=== PATIENT | male | born 1965 | race Caucasian/White ===

== ENCOUNTER → 2023-06-04 11:09 | Outpatient (REF) | payer BC, SELFPAY | LOC: RCS 11:09 | PROVIDERS: ATTENDING PHYSICIAN Thoracic Surgery (Cardiothoracic Vascular Surgery); FAMILY PHYSICIAN Hospitalist | DX: I25.10 Atherosclerotic heart disease of native coronary artery without angina pectoris (principal); I34.0 Nonrheumatic mitral (valve) insufficiency; I50.21 Acute systolic (congestive) heart failure; I36.1 Nonrheumatic tricuspid (valve) insufficiency | CPT/HCPCS: 93308; 93321; 93325 ==

== ENCOUNTER 2023-06-23 05:19 | Inpatient (IN) | payer BC, SELFPAY ==
[2023-06-17 08:27] VITALS: BMI 24.0
[2023-06-17 09:17] LABS: % Basophils 0.8 % (0-2); % Eosinophils 1.7 % (0-6); % Lymphocytes 22.1 % (20.5-51.1); % Monocytes 5.2 % (1.7-9.3); % Neutrophils 68.2 % (42.2-75.2); Absolute Basophils 0.1 10^3/uL (0-0.2); Absolute Eosinophils 0.2 10^3/uL (0-0.7); Absolute Immature Granulocytes 0.2 10^3/uL (0-0.05); Absolute Lymphocytes 1.9 10^3/uL (1.2-3.4); Absolute Monocytes 0.5 10^3/uL (0.1-0.6); Absolute Neutrophils 5.9 10^3/uL (1.4-6.5); Hematocrit 42.5 % (39.0-52.0); Hemoglobin 14.4 g/dL (13.0-18.0); Mean Corp Hgb Conc. 33.9 g/dL (33.0-37.0); Mean Corpuscular Hgb 30.6 pg (27.0-31.0); Mean Corpuscular Volume 90.2 fL (80.0-94.0); Mean Platelet Volume 9.1 fL (7.4-10.4); Nucleated Red Blood Cells % 0 % (-); Platelet Count 287 10^3/uL (130-400); Red Blood Cell Count 4.71 10^6/uL (4.70-6.10); White Blood Cell Count 8.6 10^3/uL (4.8-10.8)
[2023-06-17 09:21] LABS: INR 0.98; PT 12.9 Sec (11.4-14.6)
[2023-06-17 09:22] LABS: APTT 33.2 Sec (23.4-35.0)
[2023-06-17 09:36] LABS: Urine Albumin Negative (Neg - Trace); Urine Bilirubin Negative (Negative); Urine Character Clear (Clear); Urine Color Yellow; Urine Glucose 3+ (Negative); Urine Ketone Negative (Negative); Urine Leukocyte Negative (Negative); Urine Nitrite Negative (Negative); Urine Occult Blood Negative (Negative); Urine Specific Gravity 1.015 (<1.030); Urine Urobilinogen Negative (Neg - 1+)
[2023-06-17 09:49] LABS: Glycohemoglobin (HgbA1c) 5.7 % (4.0-5.6)
[2023-06-17 09:59] LABS: ALT (SGPT) 44 U/L (0-50); AST (SGOT) 39 U/L (17-59); Albumin 4.4 g/dl (3.5-5.0); Alkaline Phosphatase 109 U/L (38-126); Blood Urea Nitrogen 16 mg/dl (9-20); Calcium 9.5 mg/dl (8.4-10.2); Carbon Dioxide 24 mmol/L (22-30); Chloride 102 mmol/L (98-107); Estimated Creatinine Clearance 75 ml/min; Glucose 91 mg/dl (70-99); Potassium 4.4 mmol/L (3.5-5.1); Sodium 137 mmol/L (135-145); Total Bilirubin 0.7 mg/dl (0.2-1.3); Total Protein 7.9 g/dl (6.3-8.2); eGFR > 60.00
--- NOTE | 2023-06-17 10:58 | CM ---
Met with Mr. [place] and is sister in [place]. He states prior to admission he resides with his two sisters in a three story home with two steps to enter. He states he has two steps to enter to the home. He states he has a powder room on the first
floor. He states he has to go up a full flight of steps to get to bedroom/full bathroom. He states prior to admission he was independent with ambulation and adls. He states he does not have any DME in the home. He states he has a prescription plan
and uses [facility]. His sisters will be home to check on him if needed. They do work outside the home. The discharge plan is to return home with his two sisters and a home visit by the Cardiothoracic Transitional Care Nurse or [facility] when
medically stable.
We reviewed pre-op and post-op routines. We reviewed the shower instructions. He has the soap, written instructions and the Cardiothoracic Surgery Educational Booklet. We also reviewed restrictions including Sternal precautions and driving
restrictions. We discussed a home visit by the Cardiothoracic Transitional Care Nurse if in their catchment area or [facility] if needed. He is agreeable to a home visit. The plan is for CABG on Friday, June 23, 2023.
[2023-06-23] VITALS (16 sets, daily range): BP systolic 88–130; BP diastolic 59–94; BMI 22.9
--- NOTE | 2023-06-23 05:30 | PTCARENOTE ---
pt admitted into CVICU room 2262. pt clipped and prepped for CVOR. ABO drawn. pt confirmed 2 showers at home. pre-op education provided. pre-op meds administered. all questions answered. airport operations supervisor to OR
[2023-06-23] MEDS: MAGNESIUM OXIDE 500 MG PO (05:39)
[2023-06-23] MEDS: PROTONIX 40 MG PO (05:39)
[2023-06-23] MEDS: LOPRESSOR 25 MG PO (05:39)
[2023-06-23] MEDS: BACTROBAN 2% OINTMENT 1 APPLIC NASAL ×2 (05:39→19:59)
--- NOTE | 2023-06-23 06:14 | W.CVOR.SURPR ---
CVOR Surgeon Immed Pre Op
-
I have examined this patient prior to performance of the scheduled procedure.
The patient's condition is unchanged from the time of the dictated/written History and
Physical and the patient is able to undergo the scheduled procedure.
High risk CABG +/- Multi valve intervention +/- 5.5 impella support
[2023-06-23 07:32] LABS: ACT+ - POC 109 Seconds (82-134)
[2023-06-23 07:36] LABS: B.E. - POC -4.5 mmol/L; Glucose - POC 97 mg/dl (65-99); HCO3 - POC 20 mmol/L (21-29); Hematocrit - POC 40 % PCV (42-52); Hemodilution- POC No; Hemoglobin Calculated - POC 13.7; Ionized Calcium - POC 1.25 mmol/L (1.12-1.27); O2 Saturation %Calculated-POC 99.8 5 (92-96); PCO2 - POC 37 mmHg (35-45); PO2 - POC 245 mmHg (80-100); Potassium - POC 4.2 mmol/L (3.6-5.0); Sodium - POC 142 mmol/L (135-145); pH - POC 7.36 (7.35-7.45)
[2023-06-23 07:42] LABS: Urine Albumin Trace (Neg - Trace); Urine Bilirubin Negative (Negative); Urine Character Clear (Clear); Urine Color Yellow; Urine Glucose 2+ (Negative); Urine Ketone Negative (Negative); Urine Leukocyte Negative (Negative); Urine Nitrite Negative (Negative); Urine Occult Blood Negative (Negative); Urine Urobilinogen Negative (Neg - 1+)
--- NOTE | 2023-06-23 08:17 | CM ---
Reviewed chart. Mr. Davalos is in the operating room today. Prior to admission he resides with his two sisters in a three story home with two steps to enter. He has a powder room on the first floor. He has to go up a full flight of steps to get to
bedroom/full bathroom. Prior to admission he was independent with ambulation and adls. He does not have any DME in the home. He has a prescription plan and uses [facility]. His sisters will be available to check on him at home. They do work
outside the home. Medical work-up in progress. The discharge plan is to return home with his two sisters and a home visit by the Cardiothoracic Transitional Care Nurse verses [facility] when medically stable.
[2023-06-23 09:04] LABS: ACT+ - POC 552 Seconds (82-134)
[2023-06-23 09:27] LABS: B.E. - POC -2.3 mmol/L; Glucose - POC 120 mg/dl (65-99); HCO3 - POC 24 mmol/L (21-29); Hematocrit - POC 31 % PCV (42-52); Hemodilution- POC Yes; Hemoglobin Calculated - POC 10.7; Ionized Calcium - POC 1.11 mmol/L (1.12-1.27); O2 Saturation %Calculated-POC 99.7 5 (92-96); PCO2 - POC 46 mmHg (35-45); PO2 - POC 221 mmHg (80-100); Potassium - POC 4.7 mmol/L (3.6-5.0); Sodium - POC 138 mmol/L (135-145); pH - POC 7.32 (7.35-7.45)
[2023-06-23 09:30] LABS: ACT+ - POC 476 Seconds (82-134)
[2023-06-23 10:04] LABS: B.E. - POC -0.9 mmol/L; Glucose - POC 171 mg/dl (65-99); HCO3 - POC 25 mmol/L (21-29); Hematocrit - POC 38 % PCV (42-52); Hemodilution- POC Yes; Hemoglobin Calculated - POC 12.8; Ionized Calcium - POC 1.09 mmol/L (1.12-1.27); O2 Saturation %Calculated-POC 99.2 5 (92-96); PCO2 - POC 43 mmHg (35-45); PO2 - POC 145 mmHg (80-100); Potassium - POC 5.1 mmol/L (3.6-5.0); Sodium - POC 140 mmol/L (135-145); pH - POC 7.37 (7.35-7.45)
[2023-06-23 10:06] LABS: ACT+ - POC 443 Seconds (82-134)
[2023-06-23 10:53] LABS: ACT+ - POC 107 Seconds (82-134)
[2023-06-23 10:56] LABS: B.E. - POC -5.3 mmol/L; Glucose - POC 109 mg/dl (65-99); HCO3 - POC 21 mmol/L (21-29); Hematocrit - POC 35 % PCV (42-52); Hemodilution- POC Yes; Hemoglobin Calculated - POC 12.1; Ionized Calcium - POC 1.43 mmol/L (1.12-1.27); O2 Saturation %Calculated-POC 99.9 5 (92-96); PCO2 - POC 40 mmHg (35-45); PO2 - POC 345 mmHg (80-100); Potassium - POC 3.3 mmol/L (3.6-5.0); Sodium - POC 145 mmol/L (135-145); pH - POC 7.31 (7.35-7.45)
--- NOTE | 2023-06-23 11:40 | PTCARENOTE ---
Received patient from CVOR @ 1140. Pt unresponsive. PERRLA 3mm sluggish. Pt intubated and sedated on precedex gtt. POX 100%. Intubated with 8.0 ETT 23cm at the lip. SIMV 60% 14 550 5/5. Not breathing over the vent at this time. Lungs clear
throughout. Mediastinal chest tubes x2 y-sited to 1 atrium to -20cm suction draining red fluid. Left pleural chest tube to -20cm draining red fluid. No air leaks, tidaling, crepitus noted. NSR on tele with rates in the 80s. BP supported with
levophed gtt, slightly labile. Bilateral radial and DP pulses palpable. No edema noted. +Rub. Epicardial AV-wires set to VVI 50/5/4. Thresholds completed. Abdomen soft, nontender. Hypoactive BS. Valverde catheter intact draining adequate amounts of
clear yellow urine. Sternal incision approximated with skin glue. Left groin puncture site approximated with skin glue. Left SVG harvest site approximated with skin glue and ED CDI. Right IJ cordis and swan floated to 42cm. Left radial aman intact
with appropriate waveform. All lines flushed, leveled, zeroed. Left AC 18g PIV intact with insulin gtt infusing per Critical Care glycemic protocol. See MAR for medication administration. See worklist for complete nursing assessment. Post op CXR,
EKG, and labs completed.
--- NOTE | 2023-06-23 11:40 | W.PN.CT.SURG ---
CT Surgery Operative Note
-
CARDIAC SURGERY OPERATIVE REPORT
Preoperative Diagnosis: Multivessel Coronary Artery Disease with involvement of the left main and ischemic cardiomyopathy depressed ventricular function
Postoperative Diagnosis: Same
Procedure(s) Performed:
1. Standard sternotomy with aortic and right atrial cannulation
2. Pump assisted, beating heart, coronary artery bypass grafting x 3 (In situ GIL to LAD, Ao to RSVG to OM1 sequential to OM 2)
3. Endoscopic vein harvesting of left lower extremity
4. Placement of temporary atrial ventricular pacing wires
5. Transesophageal echocardiography
Date of Surgery: 06/23/2023
Comorbidities:
1. MV CAD with LM involvement
2. Depressed LVEF to 30% preoperative
3. Ischemic cardiomyopathy with acute on chronic congestive heart failure requiring admission to the hospital with diuresis and inotropic support
4. History of EtOH abuse, possible EtOH cardiomyopathy
5. Mitral and tricuspid valve regurgitation
6. History of acute kidney injury
7. Hyperlipidemia
8. Gout
Attending Surgeon: Ted Dooley MD, MS
Assistants: Kristi Ramsay PA-C (present and necessary to volunteer assistant, endoscopic vein harvest, retraction, suction, exposure, suture management, and wound closure under my direction)
Anesthesiology: Seth Aviles MD and Janie Salinas CRNA
Scrub and Circulating RNs: Mari Leonard RN, Robert Blakely RN
Cylinder Devalver: Mukesh Salvador CCP
Anesthesia: GETA
EBL: per perfusion records
Products: None
CPB Time: 80 minutes
Aortic Cross Clamp Time: Beating Heart
Indication(s) for Procedures: This is a 57-year-old male who initially presented to the hospital with shortness of breath and respiratory failure secondary to volume overload. At that time he was found to have an EF of approximately 25% with severe
mitral and tricuspid valve insufficiency. He required aggressive diuresis and inotropic support. He was found to have an index of 1.6-1.7 at that time. He did recover after volume offloading and was ultimately discharged in the hospital to my
office for follow-up. Serial echocardiograms demonstrated persistent EF of approximately 30% even on GDMT. Given his left main involvement, he was counseled about high risk coronary artery revascularization. He excepted those risks and we opted
to move forward.
Conduit(s) Quality:
GIL -excellent/harvested in a pedicled fashion due to its intermittent course with the vein.
RSVG -excellent/relatively uniform with minor varicosities
Target(s) Quality:
OM1 -good quality, decent sized target of approximately 1.75 mm
OM2 - good quality, decent sized target approximate 1.5 mm
LAD - good quality, fit a 2 mm probe and shunt
Findings: Left ventricular ejection fraction preoperatively was 30% with no significant regional wall motion abnormalities, it was global hypokinesis following surgery his EF did improve to approximately 40 to 45% with no new regional wall motion
abnormalities. Of note, he was on low-dose inotropic support at this time. The GIL was harvested in a pedicled fashion. Following bypass grafting, flow probe assessment of the graft demonstrated excellent flow in both the GIL to LAD with a mean
flow of over 30 cc a minute with a pulsatility index of around 2. The vein graft that was sequential to OM1 and OM 2 had a mean flow of approximately 40 cc/min with a pulsatility index of 2. All grafts were verified to be hemostatic.
Description of Procedure: The patient was taken to the operating room. Their identity and procedure to be performed were verified and they were positioned supine on the operating table. Induction via general anesthesia with endotracheal intubation
was performed and central venous access and arterial monitoring were inserted. A preoperative transesophageal echocardiogram was performed to assess cardiac function and valvular function. The patient was then prepped and draped from chin to feet in
a sterile fashion. A preoperative time-out was performed with all members of the team present. A midline chest incision was performed along with median sternotomy. Simultaneous endoscopic access of the left lower extremity for saphenous vein harvest
was obtained along with administration of an initial 5,000 units of IV heparin. A RulTract sternal retractor was positioned to exposure the left internal mammary bed. The mammary was harvested and found to have good flow. A bulldog clamp was applied
to the distal end of the mammary after dividing it. It was wrapped in a papaverine soaked RayTec and replaced back into the left hemithorax. The RulTract was exchanged for a median sternal retractor. The innominate vein was isolated. Full
heparinization was given (a total of 40,000 units). We created a pericardial well. The aortic cannulation site was chosen where it was soft, pliable, and free of calcium. Cannulation was performed with an arterial cannula in the ascending aorta and
a triple-stage venous cannula through the right atrial appendage. The arterial cannula line had an appropriate bounce and correlating pressures with test dosing. The ACT was confirmed to be over 400 and retrograde autologous priming was performed
before commencing cardiopulmonary bypass. The target grafts were assessed and found to be easily accessible with the beating heart approach. Patient's temperature was allowed to drift and we performed the surgery under pump assist beating heart.
I positioned the heart to expose the second obtuse marginal using a coronary stabilizer. A algaaciq blade was used to expose the coronary and perform the arteriotomy. Coronary Flores scissors were used to enlarge the incision. The saphenous vein was
trimmed and beveled to an appropriate size. The distal anastomosis was performed using 7-0 prolene in an end-to-side fashion. Test filling of the graft using warm saline was performed and found to be hemostatic with excellent flow. Appropriate
hemostasis and flow were confirmed. The graft was measured for length to the aorta and to accommodate a sequential graft to the first OM. A suitable site on the first obtuse marginal was chosen. A small venotomy was created on the underbelly of
the vein graft and enlarged. An emoj-uj-[id number] anastomosis was created with a 7-0 prolene. Test filling of the vein graft while occluding the distal portion demonstrated good patency and hemostasis. Appropriate hemostasis and flow were confirmed. The
graft was measured for length to the aorta and cut. A suitable target on the distal left anterior descending was identified. We dissected and prepared the distal target in a similar fashion. We retrieved the GIL from the chest and created a
pericardial opening while being cognizant of the phrenic nerve to facilitate the course of the mammary. The distal end of the mammary was prepped and beveled to size. We verified orientation and length of the LEONEL and found brisk flow. An end-to-side
anastomosis was created with a 7-0 prolene. The bulldog clamp was released. Wcreated 1 aortotomy using a 4.3 mm heartstring device. The proximal anastomoses were created in an end-to-side fashion using 6-0 prolene. At the the same time, we re-warmed
to 36.5 degrees centigrade. Temporary bipolar ventricular pacing wires and atrial pacing wires were placed on the base of the right ventricle and the SVC/right atrial junction, respectively. A 30-gauge needle was used to de-air the vein grafts. All
bypass grafts were inspected and were free from kinking or twisting. The distal and proximal anastomoses appeared hemostatic. Once transesophageal echocardiography appeared satisfactory we initiated weaning from cardiopulmonary bypass. Once we were
off cardiopulmonary bypass, the venous cannula was clamped and removed. A test dose of protamine was administered and the patient was monitored for any adverse reaction before resuming protamine. Once half of the protamine dose was delivered, pump
suckers were turned off and the systolic blood pressure was lowered for aortic decannulation. The aortic cannula was removed and pursestrings were tied down. All cannulation sites were oversewn with a 4-0 prolene. The mammary bed was inspected and
hemostasis was confirmed. Once the mediastinum was hemostatic, 19Fr James drain was placed in the left pleural cavity and two 24Fr James drains were placed within the pericardium. The sternum was approximated with 4 #7 single and 3 #8 double
stainless steel wires. Fascia was approximated with #1 vicryl suture. The subcutaneous, dermis and epidermis were closed in layers in a running fashion. The skin wound was cleansed and dressed.
All instrument, sponge, and needle counts were confirmed to be correct x 2 at the end of the operation. The patient was transferred to the cardiac intensive care unit in critical but stable condition.
I, Dr. Ted Dooley, was present, scrubbed for, and performed all critical elements of this procedure.
Ted Dooley MD, MS
Cardiothoracic Surgeon
[facility]
This operative dictation was created using the [employer] dictation system. Please excuse any grammatical, typographical, or 'sound alike' errors
--- NOTE | 2023-06-23 11:41 | CON.INTV ---
Consultation
Consultation Request
Date/Time Consultation Requested: 06/23/2023 - 1108
Date/Time Consultation Performed: 06/23/2023 - 1127
Requesting Provider: Ankit Saucedo PA-C
Performing Provider: Dr. Jeffrey
Reason for Consultation: s/p CABG
Medical History
-
Chief Complaint: Elective CABG
History of Present Illness:
57-year-old male with a past medical history of valvular heart disease, gout, hyperlipidemia and CAD who presents with elective CABG. Patient known to the cardiothoracic surgical team and last saw Dr. Dooley in the office on 06/04/2023. At that office
visit patient discussed his multivessel CAD as well as mitral regurgitation and heart failure. His most recent echo on 06/04/2023 demonstrates no significant MR/TR with global hypokinesis and an EF of 30-35%. He does take goal-directed medical
therapy. Revascularization was discussed considering his heart failure with reduced ejection fraction and he has known two-vessel CAD with severe calcific atherosclerotic plaque in the LAD seen on CT chest from February 2023. On 06/23/2023, patient
underwent CABG X.3 and there was no immediate complications and patient was transferred to the CVICU postoperatively for further care. Recycling Tech service is consulted for additional management/recommendations.
When I saw the patient he was in bed, intubated on SIMV 14/450/60%/5 breathing at 14 breaths/min, with VTe of 520mL and PIP [id number]. BP via left radial A-line reads 78/54, PAP via right IJ PAC is 20/9, SpO2 99%. He has mediastinal chest tubes x 2
and a left pleural chest tube x1. He is on dobutamine at 3mcg/kg/min and levophed at 2mcg/min. He is sedated on precedex at 0.5mcg/kg/hr. He was on nitroglycerin at 20mcg/min but due to hypotension with SBP in 70s, this was stopped. BP improved
with bilateral leg raise and temporarily raising levophed to 20mcg/min. After BP improved Levophed was able to be dropped back down to 2mcg/min.
PMHx: Mitral valve regurgitation, tricuspid regurgitation, gout, hypercholesterolemia, CAD, HFrEF, renal failure
PSHx: Cholecystectomy (2013)
Past Medical History
Past Medical History: Other (Above as per HPI)
Past Surgical History: Other (Above as per HPI)
Social History
Tobacco: Non-smoker
Alcohol: Daily (4 beers a night)
Drug: None
Family History
Family History: Other (Stroke - father; liver disease - mother)
Allergies / Home Medications
Allergies
Allergy/AdvReac Type Severity Reaction Status Date / Time
No Known Allergies Allergy Verified 06/12/23 11:23
Home Medications
Medication Instructions Recorded Confirmed Last Taken Type
acetaminophen 325 mg capsule 650 mg PO HS Pain 03/22/23 06/23/23 06/22/23 19:00 History
(Tylenol)
allopurinol 300 mg tablet 300 mg PO DAILY Gout 03/22/23 06/23/23 06/22/23 08:00 History
aspirin 81 mg chewable tablet 81 mg PO DAILY Blood clot 03/27/23 06/23/23 06/22/23 08:00 Rx
(Children's Aspirin) prevention/tx #30 tabs
atorvastatin 40 mg tablet 40 mg PO QPM Heart 03/27/23 06/23/23 06/22/23 08:00 Rx
disease/condition #30 tabs
dapagliflozin propanediol 10 mg 10 mg PO DAILY Heart 03/27/23 06/23/23 06/21/23 08:00 Rx
tablet (Farxiga) disease/condition #30 tabs
furosemide 20 mg tablet 20 mg PO DAILY Fluid 03/27/23 06/23/23 06/22/23 08:00 Rx
retention/Swelling #30 tabs
metoprolol succinate 50 mg 50 mg PO BID Heart 03/27/23 06/23/23 06/22/23 08:00 Rx
tablet,extended release 24 hr disease/condition #30 tabs
sacubitril 24 mg-valsartan 26 mg 1 tab PO BID Heart 03/27/23 06/23/23 06/20/23 20:00 Rx
tablet (Entresto) disease/condition #60 tabs
spironolactone 25 mg tablet 12.5 mg PO DAILY Heart 03/27/23 06/23/23 06/20/23 20:00 Rx
disease/condition #30 tabs
Review of Systems
-
Unable to Obtain full review of systems at this time due to: Patient Intubation
Vitals / Labs / Diagnostic Testing
Vital Signs
Temp Pulse Resp BP Pulse Ox
97.5 F 72 18 130/92 98
06/23/23 05:26 06/23/23 05:39 06/23/23 05:26 06/23/23 05:39 06/23/23 05:26
Diagnostic Testing:
Physical Exam
-
HEENT: Normocephalic and Anicteric
Cardiovascular: S1/S2 and Peripheral Edema (negative)
Respiratory: Wheeze (Negative), Rales (Negative), Rhonchi (Negative) and Other (ETT in place; mechanical breath sounds heard bilaterally)
GI: Soft, Non Distended and Non Tender
Neurology: Tremors (negative) and Other (Sedated)
Skin: Warm and Dry
General: Sweats (Negative) and Other (Intubated/sedated male in NAD)
Assessment
-
Assessment: 57-year-old male with a past medical history of valvular heart disease, gout, hyperlipidemia and CAD who presents with elective CABG. Patient known to the cardiothoracic surgical team and last saw Dr. Dooley in the office on 06/04/2023. At
that office visit patient discussed his multivessel CAD as well as mitral regurgitation and heart failure. His most recent echo on 06/04/2023 demonstrates no significant MR/TR with global hypokinesis and an EF of 30-35%. He does take goal-directed
medical therapy. Revascularization was discussed considering his heart failure with reduced ejection fraction and he has known two-vessel CAD with severe calcific atherosclerotic plaque in the LAD seen on CT chest from February 2023. On 06/23/2023,
patient underwent CABG X.3 and there was no immediate complications and patient was transferred to the CVICU postoperatively for further care. Recycling Tech service is consulted for additional management/recommendations.
Chronic medical conditions NURSING COORDINATOR: Mitral valve regurgitation, tricuspid regurgitation, gout, hypercholesterolemia, CAD, HFrEF, renal failure
Impression:
#Multivessel CAD with left main coronary artery involvement s/p CABG x 3 - POD#0
#Anemia (Hb baseline 15-16g/dL)
#Chronic HFrEF - patient is currently euvolemic
#History of alcohol abuse with possible dilated cardiomyopathy due to EtOH
#Mitral/tricuspid valve regurgitation
#Gout
#Hyperlipidemia
Plan:
Ventilator settings reviewed
FiO2 will be weaned and maintain SpO2 >94%
Minute ventilation will be adjusted
Arterial blood gases will be monitored
Spontaneous breathing trial will be attempted with hopeful extubation after anesthesia/sedation wear off
Pulmonary artery catheter parameters will be followed
Pressors/antihypertensive/inotropes/diuretics will be provided as needed
Maintain MAP>65
Replete electrolytes with K>4, Mg>2
Resume GDMT when clinically safe to do so
DAPT
Strict I/O
Monitor chest tube output (left pleural X 1+ mediastinal X2)
Monitor hemoglobin
Monitor platelet count and coags
Transfuse blood product if needed to keep Hb >8, plt>50k
CT surgery managing chest tubes
Monitor blood sugar with goal BG 140-180mg/dL
Insulin supplementation if needed
Aspiration precautions
VAP prevention protocol
DVT prophylaxis - start chemical ppx assuming there is no increased risk of bleed
Early nutrition
Early mobilization
Critical care statement: A total of 41 minutes of critical care time was provided for this patient today. This includes management of ventilator, spontaneous breathing trial, arterial blood gases, pressors, of unstable vital signs, evaluation of the
patient at bedside, reviewing the patient's pertinent medical records including radiographs, microbiology, laboratory evaluations, and discussion with primary team and critical care nursing.
Data:
CXR 06-23-2023:
Postop cardiothoracic surgery with support apparatus in position including endotracheal tube with tip in the trachea above the yuri.
No pneumothorax.
[2023-06-23 11:56] LABS: Glucose - Point of Care 109 mg/dl (70-99)
--- NOTE | 2023-06-23 12:02 | W.PN.CD ---
Addendum entered and electronically signed by Beto Mcguire MD 06/23/23 14:08:
I saw and examined the patient.
The DIRECTOR BIOLOGICS's note was reviewed and I agree with the note.
57 year old with multivessel CAD and CM with EF 30% who underwent CABG (In situ GIL to LAD, Ao to RSVG to OM1 sequential to OM 2) by Dr. Dooley on 06/23/23
- hemodynamically stable post op . remains vented
- wena pressor as tolerated
- wean vent as per protocol
Original Note:
Today's Communication / Plan
-
Follow telemetry
Ventilator weaning and extubation per critical care team
Impression / Plan
-
BACKGROUND: 57M originally presented to [facility] with a clinical presentation consistent with acute heart failure and was found to have severe LV dysfunction and cardiac catheterization showed left main disease along with valve insufficiency which has
improved. He presents for CABG.
Franchise Development Manager: Dr. Nuñez
CAD S/P CABG (In situ GIL to LAD, Ao to RSVG to OM1 sequential to OM 2) by Dr. Dooley on 06/23/23
-Pre EF 30% with global hypokinesis, post 40-45% without new RWMA
-Not requiring vasopressor
-EKG with sinus bradycardia
-Follow telemetry
ICM
-GDMT started pre-op, resume when able (Entresto, Farxiga, Toprol XL, & Aldactone)
-Follow daily weight, I/Os, and BMP
-Heart failure education while admitted
HLD, LDL ideally < 55
Gout
Prior ETOH misuse, reports sobriety pre-operatively
SUBJECTIVE:
Intubated & sedated.
Physical Exam
Vital Signs/Labs
Vital Signs
Temp Pulse Resp BP Pulse Ox
97.5 F 72 18 130/92 98
06/23/23 05:26 06/23/23 05:39 06/23/23 05:26 06/23/23 05:39 06/23/23 05:26
06/22/23 06/23/23 06/24/23
06:59 06:59 06:59
Actual Weight 70.2 kg
PT 12.9 Sec (11.4-14.6) 06/17/23 08:42
INR 0.98 06/17/23 08:42
APTT 33.2 Sec (23.4-35.0) 06/17/23 08:42
Physical Exam
Constitutional: No acute distress and Comfortable
EENT: Anicteric and Moist mucous membranes
Cardiovascular: Rhythm & rate is regular, Pedal edema is absent and S1S2 is normal
Respiratory: Lungs clear to auscul. and Other (ETT to mechanical ventilation)
GI: Soft and Flat
Neuro/Psych: Other (nods head appropriately )
Other: Skin (warm and dry without edema)
Data Reviewed
-
Date of Service: June 23, 2023
EKG: Report Reviewed by me
Labs: Labs Reviewed by me
Old Records: Reviewed
[2023-06-23 12:04] LABS: B.E. -2.2 mmol/L; HCO3 22.4 mmol/L (21-28); Ionized Calcium 1.31 mMOL/L (1.15-1.33); O2 Saturation % 99.2 % (94-98); PCO2 37 mmHg (35-48); PO2 161 mmHg (83-108); Potassium 3.6 mMOL/L (3.5-5.1); Sodium 138 mMOL/L (136-145); pH 7.39 (7.35-7.45)
[2023-06-23 12:05] LABS: Hematocrit 35.4 % (39.0-52.0); Hemoglobin 12.2 g/dL (13.0-18.0); Platelet Count 195 10^3/uL (130-400)
[2023-06-23] MEDS: VERSED 0.5 MG IV (12:10)
[2023-06-23 12:18] LABS: INR 1.32; PT 16.2 Sec (11.4-14.6)
[2023-06-23] MEDS: ALBUMIN 5% 250 IV ×2 (12:18→14:52)
[2023-06-23 12:19] LABS: APTT 33.6 Sec (23.4-35.0); Blood Urea Nitrogen 25 mg/dl (9-20); Estimated Creatinine Clearance 74 ml/min; Glucose 114 mg/dl (70-99); Magnesium 2.9 mg/dl (1.6-2.3)
[2023-06-23] MEDS: NOVOLOG FLEXPEN SC ×2 (12:19→14:28)
[2023-06-23] MEDS: NSS 500 IV (12:19)
[2023-06-23] MEDS: ANCEF 10 IV ×2 (12:19)
[2023-06-23] MEDS: KCL 50 IV ×4 (12:34→16:58)
--- NOTE | 2023-06-23 13:00 | PTCARENOTE ---
Pt awake, following commands to shake head yes/no, squeeze hands/wiggle toes. Attempted cpap trial, RT at bedside. Occasionally apneic, placed back on SIMV settings.
[2023-06-23 13:09] LABS: Glucose - Point of Care 137 mg/dl (70-99)
--- NOTE | 2023-06-23 14:05 | PTCARENOTE ---
Pt more awake consistently. Bathed with CHG wipes, gown and new leads applied. Pt turned from side to side, no significant dumps from chest tubes noted. Pt tolerated. RT at bedside to place pt on cpap trial. POX 100%. Pt tolerating.
[2023-06-23 14:08] LABS: Glucose - Point of Care 140 mg/dl (70-99)
[2023-06-23] MEDS: TYLENOL PO (14:28)
[2023-06-23 14:46] LABS: B.E. -7.2 mmol/L; HCO3 16.1 mmol/L (21-28); O2 Saturation % 99.5 % (94-98); PCO2 26 mmHg (35-48); PO2 164 mmHg (83-108); Potassium 3.3 mMOL/L (3.5-5.1)
--- NOTE | 2023-06-23 15:00 | PTCARENOTE ---
RT at bedside to extubate patient to 6L NC. Pt tolerated POX 100% on 6L NC. IS completed 750mL achieved. Pt drowsy but oriented x4.
[2023-06-23 15:01] LABS: Glucose - Point of Care 156 mg/dl (70-99)
--- NOTE | 2023-06-23 15:05 | RESPNOTE ---
15:00 Extubated patient and placed on 6L nasal cannula 100%
[2023-06-23] MEDS: NEURONTIN 200 MG PO ×2 (15:58→22:11)
[2023-06-23] MEDS: TYLENOL 650 MG PO (15:58)
[2023-06-23] MEDS: PACERONE 200 MG PO ×2 (15:58→22:11)
[2023-06-23] MEDS: LOW STRENGTH ASPIRIN 81 MG PO (15:58)
--- NOTE | 2023-06-23 16:00 | PTCARENOTE ---
Pt reassessed. Pt alert and oriented x4. Pt rates sternal pain 6/10-see MAR. Denies nausea and shortness of breath. RAY with equal strength in all extremities. NSR with PVCs on tele with rates in the 80s. BP supported with levophed. +Rub. CI 2.62.
PA pressures 20s/10s, CP 11. POX 100% on 6L NC. Lungs clear throughout. No cough noted. IS encouraged-750mL achieved. CT output WNL. Surgical sites stable. All lines remain intact. Valverde draining adequate amounts of clear yellow urine. Gtts: Insulin
and Levophed. Call puente within reach.
[2023-06-23 16:03] LABS: Glucose - Point of Care 145 mg/dl (70-99)
[2023-06-23 16:28] LABS: Hematocrit 32.4 % (39.0-52.0); Hemoglobin 11.3 g/dL (13.0-18.0); Platelet Count 268 10^3/uL (130-400)
[2023-06-23 18:04] LABS: Glucose - Point of Care 131 mg/dl (70-99)
[2023-06-23] MEDS: ROXICODONE 2.5 MG PO (18:59)
[2023-06-23 19:58] LABS: Glucose - Point of Care 134 mg/dl (70-99)
[2023-06-23] MEDS: ANCEF 5 IV (19:59)
[2023-06-23] MEDS: SENOKOT-S 1 TABLET PO (19:59)
[2023-06-23 20:00] LABS: B.E. -4.9 mmol/L; HCO3 19.5 mmol/L (21-28); Ionized Calcium 1.24 mMOL/L (1.15-1.33); O2 Saturation % 99.9 % (94-98); PCO2 33 mmHg (35-48); PO2 153 mmHg (83-108); Potassium 5.1 mMOL/L (3.5-5.1); pH 7.38 (7.35-7.45)
--- NOTE | 2023-06-23 21:00 | PTCARENOTE ---
Assumed care of pt from dayshift RN. Walking rounds completed. Pt AAOx4. RAY. Following commands appropriately. Pt SR on monitor. HR 80s. Temporary epicardial A/V wires set to VVI 50/5/4. +Rub. BP 90s-110s/60s. Levophed infusing per protocol. [place]
floated to 42cm. CVP 7-10. PA pressures 20's/teens. CI: 2.91/CO: 5.39. CVP/PAP zeroed and flushed. Pt on 2 L NC. POX 99-100%. Lungs clear throughout. Mediastinal CTx2 y-sited to one atrium to -20 suction, no airleak/tidaling/crepitus noted at this
time, and output appropriate. Left pleural CT to -20 suction, no airleak/tidaling/crepitus noted at this time, and output appropriate. IS encouraged. Abdomen soft/nontender. BS hypoactive. Temp sensing Valverde catheter intact & draining clear/yellow
urine. Sternal incision intact and open to air. Left groin puncture site soft/nontender w/ gauze in place. Left leg incision intact w/ ED wrap. Left AC 18 gauge PIV CDI w/ insulin infusing. Critical Care Glycemic protocol followed. Right IJ cordis
w/ swan CDI. Left radial a-line CDI, zeroed and flushed. ABG drawn and sent per order. Pt states pain controlled at this time. Call puente within reach. See work-list for full nursing assessment, VS, and interventions.
[2023-06-23] MEDS: SODIUM BICARBONATE 100 MEQ IV (21:07)
--- NOTE | 2023-06-23 21:30 | PTCARENOTE ---
2 amps bicarb administered per order - see MAR. Pt tolerated. VSS. BP 100s-120/60s-70.
[2023-06-23 22:08] LABS: Glucose - Point of Care 115 mg/dl (70-99)
[2023-06-23] MEDS: TYLENOL 1000 MG PO (22:10)
[2023-06-23] MEDS: FLEXERIL 5 MG PO (22:11)
[2023-06-23] MEDS: LIPITOR 40 MG PO (22:11)
[2023-06-23 22:14] LABS: B.E. 0.9 mmol/L; HCO3 25.2 mmol/L (21-28); O2 Saturation % 99.3 % (94-98); PCO2 38 mmHg (35-48); PO2 138 mmHg (83-108); pH 7.43 (7.35-7.45)
[2023-06-23 23:21] LABS: Glucose - Point of Care 100 mg/dl (70-99)
--- NOTE | 2023-06-23 23:45 | PTCARENOTE ---
Pt reassessed. SR on monitor. HR 80s. Temporary epicardial A/V wires intact - set to VVI 50/5/4. [place] DC'd per order. BP stable. Pt on RA. POX 96-99%. CT assessment unchanged from previous. Valverde catheter CDI and draining clear/yellow urine. All
surgical sites stable. Glycemic protocol followed.
Left radial a-line maintained, zeroed, and flushed. Pt states pain is controlled at this time. See MAR for medication administration. Call puente within reach.
[2023-06-24] VITALS (27 sets, daily range): BP systolic 82–118; BP diastolic 60–84; PULSE 78; O2SAT 94–97; BMI 23.0
[2023-06-24 00:17] LABS: Glucose - Point of Care 101 mg/dl (70-99)
[2023-06-24 00:56] LABS: Glucose - Point of Care 98 mg/dl (70-99)
--- NOTE | 2023-06-24 03:31 | DOWNTIME ---
There was a [employer] Machine Operator Downtime on 06/24/2023 from 0100 to 06/24/2023 at 0322. Downtime documentation of patient's care, including medication administrations, has been reconciled in the electronic record per guidelines. Refer to the
patient's paper chart under the miscellaneous tab to see printed paper medication records and downtime forms.
[2023-06-24] MEDS: ROXICODONE 2.5 MG PO ×2 (04:08→08:48)
[2023-06-24] MEDS: ANCEF 5 IV ×2 (04:09→11:11)
[2023-06-24 04:19] LABS: Glucose - Point of Care 95 mg/dl (70-99)
[2023-06-24 04:24] LABS: Ionized Calcium 1.18 mMOL/L (1.15-1.33)
[2023-06-24 04:27] LABS: Hematocrit 31.6 % (39.0-52.0); Hemoglobin 10.7 g/dL (13.0-18.0); Mean Corp Hgb Conc. 33.9 g/dL (33.0-37.0); Mean Corpuscular Hgb 30.7 pg (27.0-31.0); Mean Corpuscular Volume 90.5 fL (80.0-94.0); Mean Platelet Volume 8.8 fL (7.4-10.4); Platelet Count 219 10^3/uL (130-400); Red Blood Cell Count 3.49 10^6/uL (4.70-6.10); Red Cell Dist. Width 14.4 % (11.5-14.5); White Blood Cell Count 17.6 10^3/uL (4.8-10.8)
--- NOTE | 2023-06-24 04:39 | W.PN.CT ---
Today's Communication / Plan
-
-pod #1
-no issues overnight
-CI 2.91, CO 5.39 off Dobutamine. Bryan dcd 06/22. Drips: insulin only
-CT output: L pleur 60/160, 2 meds 75/150 in 12/24 hrs
-dcd a-line
-BMP pending
-d/c Valverde
-d/c insulin
-current meds (ASA, Plavix, Lipitor, Lopressor, Amio, Protonix, Neurontin, Flexeril)
-encourage IS, OOB
Assessment / Plan
-
- mv-CAD/LM dz - s/p Pump assisted, beating heart, coronary artery bypass grafting x 3 (In situ GIL to LAD, Ao to RSVG to OM1 sequential to OM 2); L evh by Dr. Dooley on 06/23/23, pod #1
- Intraop ARACELY: LVEF preoperatively was 30% with no significant regional wall motion abnormalities, global hypokinesis. Following surgery his EF did improve to approximately 40 to 45% with no new regional wall motion abnormalities.� Of note, he was
on low-dose inotropic support at this time.
- Ischemic cardiomyopathy with recent acute on chronic systolic congestive heart failure requiring admission to the hospital with diuresis and inotropic support
- History of EtOH abuse, possible EtOH cardiomyopathy
- Mitral and tricuspid valve regurgitation
- History of acute kidney injury (peak Cr 1.6 in 02/2023)
- Hyperlipidemia
- Gout
- Cholecystectomy 2013
- Remote ankle surgery
- Acute postop blood loss anemia- stable without transfusion
- Acute postop atelectasis
- Acute postop hypovolemia with subsequent hypervolemia
Discussed patient care with: Nursing and Care Team
Subjective
Procedure
-s/p Pump assisted, beating heart, coronary artery bypass grafting x 3 (In situ GIL to LAD, Ao to RSVG to OM1 sequential to OM 2); L evh by Dr. Dooley on 06/23/23, pod #1
-
Date of Service: June 23, 2023
Objective Data
-
Lab Results
06/23/23 16:02
06/23/23 11:49
PT 16.2 Sec (11.4-14.6) H 06/23/23 11:49
INR 1.32 06/23/23 11:49
APTT 33.6 Sec (23.4-35.0) 06/23/23 11:49
Vital Signs
Vital Signs
Temp Pulse Resp BP Pulse Ox
98.6 F 85 20 103/78 100
06/23/23 23:00 06/23/23 23:15 06/23/23 23:15 06/23/23 23:00 06/23/23 23:00
CT Intake/Output/Weight
06/23/23 06/23/23 06/24/23
06:59 18:59 06:59
Intake Total 1121.2 / 1285.9 164.7 / 1285.9
Output Total 835 / 1195 360 / 1195
Balance 286.2 / 90.9 -195.3 / 90.9
SaO2: 100
Physical Exam
-
General: Awake and AOx3
Cardiovascular: Regular rate & rhythm, No Murmurs and No Rub
Respiratory: Decreased Breath Sounds
Sternum: Stable
Incision: Clean, Dry and Dressing Intact
Extremities: No Edema (2+ DP b/l)
Data Reviewed
-
Lab Results: Results Reviewed
Medications: Active Meds Reviewed
Chest X-Ray: Report Reviewed and Image Reviewed
ECG: Report Reviewed and Image Reviewed
--- NOTE | 2023-06-24 05:00 | PTCARENOTE ---
Pt reassessed. SR on monitor. HR 80s. Temporary epicardial A/V wires intact - set to VVI 50/5/4. BP stable. Pt on RA. POX 95-99%. CT assessment unchanged. Valverde catheter CDI and draining clear/yellow urine. All surgical sites stable. Glycemic
protocol followed. Left radial a-line DC'd. EKG obtained. Labs drawn and sent. Pt c/o pain - see MAR. Call puente within reach.
[2023-06-24 05:58] LABS: Blood Urea Nitrogen 25 mg/dl (9-20); Calcium 9.4 mg/dl (8.4-10.2); Carbon Dioxide 23 mmol/L (22-30); Chloride 109 mmol/L (98-107); Estimated Creatinine Clearance 74 ml/min; Glucose 88 mg/dl (70-99); Magnesium 2.6 mg/dl (1.6-2.3); Potassium 4.4 mmol/L (3.5-5.1); Sodium 143 mmol/L (135-145); eGFR > 60.00
[2023-06-24 06:09] LABS: Glucose - Point of Care 87 mg/dl (70-99)
[2023-06-24] MEDS: TYLENOL 1000 MG PO ×3 (06:12→21:58)
--- NOTE | 2023-06-24 07:53 | W.PN.ANS.POP ---
Anesthesia Post Operative
- Anesthesia Post Op Note
Vital Signs Stable-See Nursing Note: Yes
Airway Patent: Yes
Adequate Pain Control: Yes
Change in Mental Status: No
Current Postoperative Nausea & Vomiting: No
Anesthesia Complications: No
General Anesthetic Recall: No
Unplanned Admission: No
Post Op Hydration Adequate: Yes
--- NOTE | 2023-06-24 08:00 | PTCARENOTE ---
pt received from previous RN, oriented, OOB in chair. SR on the monitor, HR 80s. A&V wires, VVI 50/5. SBP 110s. palpable pulses, no edema. pt on RA, 96% POX. lungs clear, diminished in bases. IS encouraged. CT x3, no air leak or crepitus noted. pt
abdomen s/n, denies n/v. hypoactive BS. tolerating clears. Valverde in place, clear yellow urine. sternal incision approximated, PROFESSOR OF GRAPHIC DESIGN. chest tube site c/d/i. L groin c/d/i. LLE ED bandage in place. RIJ cordis maintained. PIV. insulin gtt running per
protocol. see worklist for VS, I&O, and assessment.
[2023-06-24 08:04] LABS: Glucose - Point of Care 94 mg/dl (70-99)
[2023-06-24] MEDS: MAGNESIUM OXIDE 500 MG PO (08:04)
[2023-06-24] MEDS: LOW STRENGTH ASPIRIN 81 MG PO (08:04)
[2023-06-24] MEDS: PACERONE 200 MG PO ×3 (08:04→21:58)
[2023-06-24] MEDS: LOPRESSOR 12.5 MG PO (08:04)
[2023-06-24] MEDS: ZYLOPRIM 300 MG PO (08:04)
[2023-06-24] MEDS: NEURONTIN 200 MG PO ×3 (08:04→21:57)
[2023-06-24] MEDS: PROTONIX 40 MG PO (08:04)
[2023-06-24] MEDS: PLAVIX 75 MG PO (08:04)
[2023-06-24] MEDS: LIDOCAINE 4% PATCH 1 PATCH TOPICAL (08:05)
[2023-06-24] MEDS: BACTROBAN 2% OINTMENT 1 APPLIC NASAL ×2 (08:06→20:03)
--- NOTE | 2023-06-24 08:08 | W.PN.CD ---
Today's Communication / Plan
-
Start sacubitril/valsartan 24/26 mg BID today and monitor.
Plan to start dapagliflozin 10 mg daily tomorrow.
Monitor I/O, telemetry.
Impression / Plan
-
Impression/Plan: 57M originally presented to [facility] with acute heart failure, found to have severe LV dysfunction (LVEF 25%) prompting cardiac catheterization which showed left main disease along with valve insufficiency. He was started on GDMT and
diuresis then discharged. Follow up echo shows that valve disease has improved with improvement in filling pressures but his global systolic function remains severely depressed. He presents for elective CABG.
#CAD
-S/P CABG (In situ GIL to LAD, Sequential SVG to OM1 to OM 2) by Dr. Dooley on 06/23/23.
-Pre EF 30% with global hypokinesis, post 40-45% without new RWMA.
-EKG shows LVH with inferolateral T wave abnormality.
-Routine post operative management.
-Continue amiodarone, aspirin, atorvastatin, clopidogrel, metoprolol.
-Encourage incentive spirometry, ambulation when appropriate.
-Chest tube management per CT surgery.
#ICM
-Chronic, improving.
-GDMT started pre-op.
-Follow daily weight, I/Os, and BMP.
-Resume GDMT as hemodynamics will tolerate. Currently on metoprolol succinate.
-Start sacubitril-valsartan 24/26 BID today.
-Start dapagliflozin tomorrow.
-Evaluate need/tolerance for spironolactone.
#HLD
-Chronic, stable.
-LDL ideally < 55.
-Continue atorvastatin 40 mg daily.
#Gout
#Prior ETOH misuse, reports sobriety pre-operatively
Retail Service Specialist: Dr. Nuñez
Subjective/Interval History:
CI 2.91 prompting discontinuation of norepinephrine and dobutamine.
Weight is up 0.5 kg from admission (70.7 <-- 70.2).
Hbg 10.7 <-- 11.3 <-- 12.2
DATA:
Intraoperative ARACELY, 06/23/2023:
CONCLUSIONS
Normal left ventricular size and wall thickening with mild to moderate global
hypokinesis that gradually improved in the preoperative period under general
anesthesia. Ejection fraction 30-40% by visual inspection. Normal right
ventricular function. Trace to mild mitral and aortic regurgitation. Mild
tricuspid regurgitation.
Significant improvement in left ventricular function on 3 mcg/kg/min of
dobutamine. Ejection fraction now in the normal range of 50-55%. Otherwise
unchanged.
Physical Exam
Vital Signs/Labs
Vital Signs
Temp Pulse Resp BP Pulse Ox
37.0 C 86 16 114/80 98
06/24/23 04:00 06/24/23 07:08 06/24/23 07:08 06/24/23 07:08 06/24/23 07:08
06/22/23 06/23/23 06/24/23
11:59 11:59 11:59
Actual Weight 70.2 kg 70.7 kg
06/24/23 04:14
06/24/23 04:14
PT 16.2 Sec (11.4-14.6) H 06/23/23 11:49
INR 1.32 06/23/23 11:49
APTT 33.6 Sec (23.4-35.0) 06/23/23 11:49
Magnesium 2.6 mg/dl (1.6-2.3) H 06/24/23 04:14
Physical Exam
Constitutional: No acute distress and Comfortable
EENT: Anicteric and Moist mucous membranes
Cardiovascular: Rhythm & rate is regular, Pedal edema is absent, JVD pressure is normal, S1S2 is normal and Murmur/rub/gallop absent
Respiratory: Respiratory effort normal, Lungs clear to auscul., Wheeze Absent, Crackles Absent and Rhonchi Absent
GI: Soft, Distention absent, Flat, Non tender and Normal bowel sounds
Neuro/Psych: AO x 3
Data Reviewed
-
Date of Service: June 24, 2023
Medical Decision Making: Reviewed Test Results, Independent Historian Assessment, Test Interpretation and Review of Case with other Provider
EKG: Tracing Personally Visualized and interpreted and Report Reviewed by me
Echo: Tracing Personally Visualized and interpreted and Report Reviewed by me
X-Ray/CT/US/MRI/NUC/PET: Image Personally Visualized and interpreted and Report Reviewed by me
Medical Tests (PFT, Pathology etc): Report Reviewed by me
Labs: Labs Reviewed by me
Old Records: Reviewed
[2023-06-24] MEDS: LASIX 20 MG PO (08:48)
[2023-06-24] MEDS: ENTRESTO 24 MG/26 MG 1 TAB PO ×2 (08:48→20:02)
[2023-06-24] MEDS: NOVOLOG FLEXPEN SC (08:52)
[2023-06-24 08:56] LABS: Glucose - Point of Care 99 mg/dl (70-99)
[2023-06-24] MEDS: SENOKOT-S 1 TABLET PO ×2 (09:07→20:03)
[2023-06-24 09:10] LABS: Glucose - Point of Care 114 mg/dl (70-99)
[2023-06-24 10:14] LABS: Glucose - Point of Care 89 mg/dl (70-99)
[2023-06-24] MEDS: NSS 500 IV (11:11)
[2023-06-24] MEDS: NOVOLOG FLEXPEN 4 UNITS SC (11:13)
[2023-06-24 11:14] LABS: Glucose - Point of Care 100 mg/dl (70-99)
--- NOTE | 2023-06-24 11:50 | W.PN.INTV ---
Today's Communication / Plan
Recommendations
Up OOB as tolerated
GDMT as per cardiology
Replete electrolytes with K >4, Mg >2
Pain control
Cardiac rehab consult
Patient now CVICU�telemetry status. Motorcycle Maker/pulmonary service will now sign off. Thank you for allowing us to be involved in the care of this patient. Please reconsult if there are any additional questions/concerns, or if patient's
respiratory status deteriorates.
Assessment
-
Assessment: 57-year-old male with a past medical history of valvular heart disease, gout, hyperlipidemia and CAD who presents with elective CABG. Patient known to the cardiothoracic surgical team and last saw Dr. Dooley in the office on 06/04/2023. At
that office visit patient discussed his multivessel CAD as well as mitral regurgitation and heart failure. His most recent echo on 06/04/2023 demonstrates no significant MR/TR with global hypokinesis and an EF of 30-35%. He does take goal-directed
medical therapy. Revascularization was discussed considering his heart failure with reduced ejection fraction and he has known two-vessel CAD with severe calcific atherosclerotic plaque in the LAD seen on CT chest from February 2023. On 06/23/2023,
patient underwent CABG X.3 and there was no immediate complications and patient was transferred to the CVICU postoperatively for further care. Motorcycle Maker service is consulted for additional management/recommendations.
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
Impression:
#Multivessel CAD with left main coronary artery involvement s/p CABG x 3 - POD#1
#Anemia (Hb baseline 15-16g/dL)
#Chronic HFrEF - patient is currently euvolemic
#History of alcohol abuse with possible dilated cardiomyopathy due to EtOH
#Mitral/tricuspid valve regurgitation
#Gout
#Hyperlipidemia
Plan:
Tolerated extubation
Weaned down to room air and he is breathing comfortably
Encourage incentive spirometry
Increase activity as tolerated
Aspiration precautions
Pulmonary artery catheter and arterial line removed
Pressors have been weaned
Maintain MAP>65
Replete electrolytes with K>4, Mg>2
Resume GDMT when clinically safe to do so
DAPT
Strict I/O
Continue to monitor chest tube output (left pleural and mediastinal x2)
Follow hemoglobin
Continue to follow platelet count and coags
Transfuse blood product as needed to keep Hb>7g/dL, and plt>50k
CT surgery managing chest tubes
Follow blood sugar with goal BG 140-180mg/dL
Insulin supplementation continues as needed
Early nutrition
Early mobilization
DVT prophylaxis
Patient is now transferred to telemetry phase-call pulmonary if respiratory issues arise. Motorcycle Maker/pulmonary service will now sign off. Thank you for allowing us to be involved in the care of this patient.
Reviewed the patient's pertinent medical records including radiographs, microbiology, laboratory evaluations, and discussion with primary team, and critical care nursing.
Total time spent today was 40 minutes for this encounter. Time includes reviewing laboratory test/imaging results, reviewing pertinent medical records, obtaining and reviewing medical history, performing an appropriate exam, ordering medications,
tests and procedures. Time also includes documentation of this encounter, coordinating patient care and communicating with other healthcare professionals. Total time does not include separately billed tests performed on this date of service.
Data:
CXR 06-23-2023:
Postop cardiothoracic surgery with support apparatus in position including endotracheal tube with tip in the trachea above the yuri.
No pneumothorax.
CXR 06-24-2023: Postop cardiothoracic surgery; No evidence for significant pneumothorax.
Subjective Dataa
Subjective Data
Date of Service:
Date of Service: June 24, 2023
Chief Complaint: Motorcycle Maker Follow Up and Pulmonary Follow Up
Subjective:
Patient seen this morning. Sitting in chair with at bedside. He feels well with no complaints. BP 93/70, heart rate 93. He is on room air breathing comfortably. Left pleural chest tube and mediastinal chest tubes X2 are in place. He
denies SOB, headache, abdominal pain, fevers or chills. He does have some chest pain where operation was done but it is not severe.
Review of Systems
General: Other (12 point ROS performed and is negative unless mentioned above.)
Objective Data
Data Reviewed
Vital Signs / I&O / Oxygen:
Vital Signs
Temp Pulse Resp BP Pulse Ox
97.9 F 74 18 110/77 96
06/24/23 08:00 06/24/23 09:00 06/24/23 09:00 06/24/23 09:00 06/24/23 08:24
Intake and Output
06/23/23 06/24/23 06/25/23
06:59 06:59 06:59
Intake Total 1365.4 / 1375.8 31.4 / 31.4
Output Total 1535 / 1585 115 / 115
Balance -169.6 / -209.2 -83.6 / -83.6
SaO2 [CPAP/PSV] 100
SaO2 [SIMV] 100
SaO2 96
Nasal Cannula flow liters per 2
minute
Physical Exam
General: Comfortable
HEENT: Normocephalic and Anicteric
Cardiovascular: S1-S2 and Peripheral Edema (negative)
Respiratory: Wheeze (negative), Crackles (negative), Rhonchi (negative), Non-Labored Respirations and Chest Tube (x3)
GI: Soft, Non Distended and Non Tender
Neurology: AO x 3
Skin: Warm and Dry
Labs/Micro/Reports
Lab Data
06/24/23 04:14
06/24/23 04:14
Laboratory Results
06/23/23 06/23/23 06/23/23
11:49 14:38 19:55
PT 16.2 H
INR 1.32
APTT 33.6
pH 7.39 7.40 7.38
pCO2 37 26 L 33 L
pO2 161 H 164 H 153 H
HCO3 22.4 16.1 L 19.5 L
O2 Delivery Level Not Reportable Not Reportable
06/23/23
22:07
PT
INR
APTT
pH 7.43
pCO2 38
pO2 138 H
HCO3 25.2
O2 Delivery Level
[2023-06-24 12:06] LABS: Glucose - Point of Care 152 mg/dl (70-99)
--- NOTE | 2023-06-24 12:15 | PTCARENOTE ---
Addendum entered by Rosa Armenta RN 06/24/23 13:15:
SBP 80s, MAP >65. pt denies dizziness or lightheadness. [facility] [employer] aware.
Original Note:
pt VSS, no changes in assessment. pt voids in urinal. insulin gtt dc'd as ordered. x2 assist to stand, b/l LE unequal lengths, HEALTH ACTUARY aware. diet tolerated well.
--- NOTE | 2023-06-24 16:17 | PTCARENOTE ---
VS obtained, assessment stable. Patient resting comfortably, dinner ordered.
[2023-06-24] MEDS: ROXICODONE 5 MG PO (19:07)
[2023-06-24] MEDS: TOPROL XL 25 MG PO (20:03)
[2023-06-24] MEDS: MAGNESIUM OXIDE PO (20:22)
[2023-06-24] MEDS: FLEXERIL 5 MG PO (20:22)
[2023-06-24] MEDS: FLEXERIL PO (20:46)
--- NOTE | 2023-06-24 20:57 | PTCARENOTE ---
Assumed care of pt from dayshift RN. Walking rounds completed. Pt assisted out of the chair and repositioned into bed. Pt AAOx4. RAY. Following commands appropriately. Slight tremor noted - pt states this is baseline. SR on monitor. HR 80-90s. +Rub.
Temporary epicardial A/V wires insulated. BP stable. Pt on RA. POX 96%. Lung sounds diminished. Deep breathing and IS encouraged. IS 1000. Mediastinal CTx2 y-sited to one atrium to -20 suction, no airleak/tidaling/crepitus noted at this time, and
output appropriate. Left pleural CT to -20 suction, no airleak/tidaling/crepitus noted at this time, and output minimal. Abdomen soft/nontender. Pt voiding yellow urine in urinal w/o issue. All surgical sites stable. CT dressing CDI. Right IJ cordis
CDI w/ KVO infusing. See worklist for full VS, nursing assessment, and interventions. See MAR for medication administration.
[2023-06-24] MEDS: LIPITOR 40 MG PO (21:57)
[2023-06-25] VITALS (20 sets, daily range): BP systolic 80–108; BP diastolic 62–78; PULSE 87–119; BMI 23.3
--- NOTE | 2023-06-25 00:30 | PTCARENOTE ---
Previous assessment unchanged. Pt SR on monitor. HR 80s. BP 90/69. RA. CT assessment unchanged from previous. Pt repositioned in bed. Pt states pain is controlled at this time. Call puente within reach.
[2023-06-25 04:16] LABS: Hematocrit 32.2 % (39.0-52.0); Hemoglobin 10.9 g/dL (13.0-18.0); Mean Corp Hgb Conc. 33.9 g/dL (33.0-37.0); Mean Corpuscular Hgb 30.7 pg (27.0-31.0); Mean Corpuscular Volume 90.7 fL (80.0-94.0); Mean Platelet Volume 9.1 fL (7.4-10.4); Platelet Count 206 10^3/uL (130-400); Red Blood Cell Count 3.55 10^6/uL (4.70-6.10); Red Cell Dist. Width 14.7 % (11.5-14.5); White Blood Cell Count 15.7 10^3/uL (4.8-10.8)
--- NOTE | 2023-06-25 04:30 | PTCARENOTE ---
Pt reassessed. SR on monitor w/ occasional PVCs. HR 80s. BP stable. RA. POX 95%. CT assessment unchanged. All surgical sites stable. Labs drawn and sent. Pt repositioned in bed. Call puente within reach.
[2023-06-25 04:43] LABS: Blood Urea Nitrogen 23 mg/dl (9-20); Calcium 8.9 mg/dl (8.4-10.2); Carbon Dioxide 28 mmol/L (22-30); Chloride 100 mmol/L (98-107); Estimated Creatinine Clearance 92 ml/min; Glucose 101 mg/dl (70-99); Magnesium 2.2 mg/dl (1.6-2.3); Sodium 135 mmol/L (135-145); eGFR > 60.00
--- NOTE | 2023-06-25 05:52 | W.PN.CT ---
Today's Communication / Plan
-
-pod #2
-no issues overnight
-CT output: Aj pleur 0/5, 2 meds 10/90 in 12/24 hrs
-diuresed well with 20 po Lasix on 06/23 (uo 1165)
-low BP yesterday - monitor
-current meds (ASA, Plavix, Lipitor, Toprol XL 50, Entresto, Amio, Protonix, Neurontin, Flexeril). Plans to restart Farxiga
-encourage IS, OOB, ambulate
Assessment / Plan
-
- mv-CAD/LM dz - s/p Pump assisted, beating heart, coronary artery bypass grafting x 3 (In situ GIL to LAD, Ao to RSVG to OM1 sequential to OM 2); L evh by Dr. Dooley on 06/23/23, pod #2
- Intraop ARACELY: LVEF preoperatively was 30% with no significant regional wall motion abnormalities, global hypokinesis. Following surgery his EF did improve to approximately 40 to 45% with no new regional wall motion abnormalities.� Of note, he was
on low-dose inotropic support at this time.
- Ischemic cardiomyopathy with recent acute on chronic systolic congestive heart failure requiring admission to the hospital with diuresis and inotropic support
- History of EtOH abuse, possible EtOH cardiomyopathy
- Mitral and tricuspid valve regurgitation
- History of acute kidney injury (peak Cr 1.6 in 02/2023)
- Hyperlipidemia
- Gout
- Cholecystectomy 2013
- Remote ankle surgery
- Acute postop blood loss anemia- stable without transfusion
- Acute postop atelectasis
- Acute postop hypovolemia with subsequent hypervolemia
Discussed patient care with: Nursing and Care Team
Subjective
Procedure
-s/p Pump assisted, beating heart, coronary artery bypass grafting x 3 (In situ GIL to LAD, Ao to RSVG to OM1 sequential to OM 2); L evh by Dr. Dooley on 06/23/23, pod #1
-
Date of Service: June 25, 2023
Objective Data
-
PT 16.2 Sec (11.4-14.6) H 06/23/23 11:49
INR 1.32 06/23/23 11:49
APTT 33.6 Sec (23.4-35.0) 06/23/23 11:49
Vital Signs
Vital Signs
Temp Pulse Resp BP Pulse Ox
98.6 F 82 16 90/69 93
06/25/23 00:13 06/25/23 00:13 06/25/23 00:13 06/25/23 00:13 06/25/23 00:13
CT Intake/Output/Weight
06/24/23 06/24/23 06/25/23
06:59 18:59 06:59
Intake Total 244.2 / 1375.8 375.4 / 385.4 10 / 385.4
Output Total 700 / 1585 1250 / 1260 10 / 1260
Balance -455.8 / -209.2 -874.6 / -874.6 0 / -874.6
SaO2: 93
Physical Exam
-
General: Awake and AOx3
Cardiovascular: Regular rate & rhythm, No Murmurs and No Rub
Respiratory: Decreased Breath Sounds
Sternum: Stable
Incision: Clean, Dry and Dressing Intact
Abdomen: soft, nondistended, + bowel sounds
Extremities: No Edema (2+ DP b/l)
Data Reviewed
-
Lab Results: Results Reviewed
Medications: Active Meds Reviewed
Chest X-Ray: Report Reviewed and Image Reviewed
ECG: Report Reviewed and Image Reviewed
[2023-06-25] MEDS: TYLENOL 1000 MG PO ×3 (06:15→22:01)
[2023-06-25] MEDS: PLAVIX 75 MG PO (07:48)
[2023-06-25] MEDS: TOPROL XL 50 MG PO (07:48)
[2023-06-25] MEDS: ENTRESTO 24 MG/26 MG 1 TAB PO (07:48)
[2023-06-25] MEDS: SENOKOT-S 1 TABLET PO ×2 (07:48→20:38)
[2023-06-25] MEDS: PACERONE 200 MG PO ×3 (07:48→22:01)
[2023-06-25] MEDS: ZYLOPRIM 300 MG PO (07:48)
[2023-06-25] MEDS: NEURONTIN 200 MG PO ×3 (07:48→22:01)
[2023-06-25] MEDS: LIDOCAINE 4% PATCH 1 PATCH TOPICAL (07:48)
[2023-06-25] MEDS: MAGNESIUM OXIDE 500 MG PO ×2 (07:48→20:38)
[2023-06-25] MEDS: PROTONIX 40 MG PO (07:48)
[2023-06-25] MEDS: FARXIGA 10 MG PO (07:49)
[2023-06-25] MEDS: BACTROBAN 2% OINTMENT 1 APPLIC NASAL ×2 (07:49→20:42)
[2023-06-25] MEDS: LOW STRENGTH ASPIRIN 81 MG PO (07:49)
[2023-06-25] MEDS: ROXICODONE 2.5 MG PO (07:52)
--- NOTE | 2023-06-25 08:00 | PTCARENOTE ---
Received pt from production shift supervisor RN; Pt AAOx3 and resting comfortably in chair; NSR on monitor and VSS; Epicardial A/V wires insulated; RIJ Cordis and PIV x1 patent; lungs diminished; IS to 1000; CT x3 to -20 wall suction, no air leak and no crepitus
noted; positive bowel sounds; pt voiding yellow urine; palpable pulses throughout; no edema noted; all surgical sites C/D/I; see nursing documentation for further details.
[2023-06-25] MEDS: FLEXBUMIN 100 IV (08:13)
--- NOTE | 2023-06-25 08:38 | W.PN.CD ---
Today's Communication / Plan
-
continue post op care
GDMT as BP tolerates
Impression / Plan
-
Impression/Plan: 57M originally presented to [facility] with acute heart failure, found to have severe LV dysfunction (LVEF 25%) prompting cardiac catheterization which showed left main disease along with valve insufficiency. He was started on GDMT and
diuresis then discharged. Follow up echo shows that valve disease has improved with improvement in filling pressures but his global systolic function remains severely depressed. He presents for elective CABG.
#CAD
-S/P CABG (In situ GIL to LAD, Sequential SVG to OM1 to OM 2) by Dr. Dooley on 06/23/23.
-Pre EF 30% with global hypokinesis, post 40-45% without new RWMA.
-
#ICM
- -Resume GDMT as hemodynamics will tolerate. Currently on metoprolol succinate.
#HLD
- atorvastatin 40 mg daily.
#Gout
#Prior ETOH misuse, reports sobriety pre-operatively
Carbon Cleaner: Dr. Nuñez
Subjective/Interval History:
CI 2.91 prompting discontinuation of norepinephrine and dobutamine.
Weight is up 0.5 kg from admission (70.7 <-- 70.2).
Hbg 10.7 <-- 11.3 <-- 12.2
DATA:
Intraoperative ARACELY, 06/23/2023:
CONCLUSIONS
Normal left ventricular size and wall thickening with mild to moderate global
hypokinesis that gradually improved in the preoperative period under general
anesthesia. Ejection fraction 30-40% by visual inspection. Normal right
ventricular function. Trace to mild mitral and aortic regurgitation. Mild
tricuspid regurgitation.
Significant improvement in left ventricular function on 3 mcg/kg/min of
dobutamine. Ejection fraction now in the normal range of 50-55%. Otherwise
unchanged.
Physical Exam
Vital Signs/Labs
Vital Signs
Temp Pulse Resp BP Pulse Ox
98.1 F 99 20 97/72 94
06/25/23 07:59 06/25/23 08:00 06/25/23 07:59 06/25/23 07:34 06/25/23 07:59
06/24/23 06/25/23 06/26/23
06:59 06:59 06:59
Actual Weight 70.7 kg 71.5 kg
06/25/23 04:02
06/25/23 04:02
PT 16.2 Sec (11.4-14.6) H 06/23/23 11:49
INR 1.32 06/23/23 11:49
APTT 33.6 Sec (23.4-35.0) 06/23/23 11:49
Magnesium 2.2 mg/dl (1.6-2.3) 06/25/23 04:02
Physical Exam
Respiratory: Wheeze Absent and Rhonchi Absent
GI: Soft, Non tender and Normal bowel sounds
Neuro/Psych: Alert and Oriented
Other: Skin
Data Reviewed
-
Date of Service: June 25, 2023
--- NOTE | 2023-06-25 09:47 | PTCARENOTE ---
Chest tubes x3 removed without difficulties per order.
[2023-06-25] MEDS: NSS IV (09:53)
--- NOTE | 2023-06-25 12:25 | PTCARENOTE ---
Assessment unchanged; NSR on monitor and VSS; patient resting comfortably in chair.
--- NOTE | 2023-06-25 14:58 | CM ---
Reviewed chart Met with Mr. Davalos to review discharge plans. He states he is feeling well. He mentioned [facility] at [facility]. Referral sent to [facility]. for evaluation. [facility]. Liaison states he maybe to good for their program. will see how
he does in therapy tomorrow to explore SNF/Rehab. if indicated. Medical work in progress. The discharge plan is to go to SNF/Rehab. versus home with his sisters and [facility] when medically stable.
[2023-06-25] MEDS: TORADOL 15 MG IV (16:57)
--- NOTE | 2023-06-25 17:29 | PTCARENOTE ---
NSR on monitor and VSS; assessment unchanged.
[2023-06-25] MEDS: TOPROL XL PO (21:53)
[2023-06-25] MEDS: ALBUMIN 5% 250 IV (21:59)
[2023-06-25] MEDS: TOPROL XL 25 MG PO (22:00)
[2023-06-25] MEDS: LIPITOR 40 MG PO (22:00)
--- NOTE | 2023-06-25 22:00 | PTCARENOTE ---
Assumed care of pt from myesha RN. Pt AAOx3. RAY. Following commands appropriately. SR on monitor. HR 70-80s. Temporary epicardial A/V wires insulated. +Rub. BP's soft 80s/60s - PA aware. Hold 50 mg Toprol Xl and Entresto / administer 250 albumin
and 25 mg Toprol Xl - see MAR. Pt on RA. POX 94%. Lungs diminished. CT dressing CDI. Occasional weak cough. Abdomen soft/nontender. Pt voiding quoc/yellow urine w/o issue. All surgical sites stable. Right IJ cordis CDI. Left AC PIV CDI. Pt states
pain is controlled a this time. Call puente within reach. See worklist for full nursing assessment, VS, and interventions.
[2023-06-25] MEDS: FLEXERIL 5 MG PO (22:01)
[2023-06-25] MEDS: ENTRESTO 24 MG/26 MG PO (22:23)
[2023-06-26] VITALS (15 sets, daily range): BP systolic 80–110; BP diastolic 56–94; PULSE 83–86; BMI 23.4
--- NOTE | 2023-06-26 00:16 | PTCARENOTE ---
Pt reassessed. SR on monitor. HR 70-80s. BP 80-90s/60s - CTPA aware. Pt denies h/a and dizziness. RA. POX 95%. All surgical sites stable. Pt states pain is controlled at this time. Call puente within reach.
--- NOTE | 2023-06-26 03:58 | PTCARENOTE ---
Previous assessment unchanged. Pt SR on monitor. HR 70s. BP 85-100s/60-70s. RA. POX 95%. All surgical sites stable. Pt repositioned in bed. No c/o pain at this time. Labs drawn and sent. Call puente within reach.
[2023-06-26 04:09] LABS: Hematocrit 30.8 % (39.0-52.0); Hemoglobin 10.2 g/dL (13.0-18.0); Mean Corp Hgb Conc. 33.1 g/dL (33.0-37.0); Mean Corpuscular Volume 93.6 fL (80.0-94.0); Mean Platelet Volume 9.2 fL (7.4-10.4); Platelet Count 190 10^3/uL (130-400); Red Blood Cell Count 3.29 10^6/uL (4.70-6.10); Red Cell Dist. Width 14.6 % (11.5-14.5); White Blood Cell Count 10.3 10^3/uL (4.8-10.8)
[2023-06-26 04:28] LABS: Blood Urea Nitrogen 37 mg/dl (9-20); Calcium 8.9 mg/dl (8.4-10.2); Carbon Dioxide 29 mmol/L (22-30); Chloride 99 mmol/L (98-107); Estimated Creatinine Clearance 82 ml/min; Glucose 84 mg/dl (70-99); Magnesium 2.5 mg/dl (1.6-2.3); Sodium 137 mmol/L (135-145); eGFR > 60.00
--- NOTE | 2023-06-26 05:03 | W.PN.CT ---
Today's Communication / Plan
-
-pod #3
-hypotensive 80s-low 90s yesterday and overnight. Pt says 'yes' when asked about lightheadedness while laying in bed, but denies LH with sitting in a chair or walking to the bathroom earlier, no difficulty with mentation, pleasant, appropriate.
-Toprol has been increased to 50 mg bid for tachy, started on Entresto 06/23 and Farxiga 06/24
-gave 1 Albumin last night and lower dose Toprol 25mg for tachycardia, held pm Entresto
-Hg stable 10.2 (10.9 on 06/24)
-vit C, iv iron for anemia
-monitor BP
-continue PT/OT. Noted difficulty with sit to stand transfer and recommendation for walker
-encourage IS, ambulate
Assessment / Plan
-
- mv-CAD/LM dz - s/p Pump assisted, beating heart, coronary artery bypass grafting x 3 (In situ GIL to LAD, Ao to RSVG to OM1 sequential to OM 2); L evh by Dr. Dooley on 06/23/23, pod #3
- Intraop ARACELY: LVEF preoperatively was 30% with no significant regional wall motion abnormalities, global hypokinesis. Following surgery his EF did improve to approximately 40 to 45% with no new regional wall motion abnormalities.� Of note, he was
on low-dose inotropic support at this time.
- Ischemic cardiomyopathy with recent acute on chronic systolic congestive heart failure requiring admission to the hospital with diuresis and inotropic support
- History of EtOH abuse, possible EtOH cardiomyopathy
- Mitral and tricuspid valve regurgitation
- History of acute kidney injury (peak Cr 1.6 in 02/2023)
- Hyperlipidemia
- Gout
- Cholecystectomy 2013
- Remote ankle surgery
- Acute postop blood loss anemia- stable without transfusion
- Acute postop atelectasis
- Acute postop hypovolemia with subsequent hypervolemia
- Acute postop hypotension, likely d/t meds
Discussed patient care with: Nursing and Other
Subjective
Procedure
-s/p Pump assisted, beating heart, coronary artery bypass grafting x 3 (In situ GIL to LAD, Ao to RSVG to OM1 sequential to OM 2); L evh by Dr. Dooley on 06/23/23, pod #1
-
Date of Service: June 26, 2023
Objective Data
-
PT 16.2 Sec (11.4-14.6) H 06/23/23 11:49
INR 1.32 06/23/23 11:49
APTT 33.6 Sec (23.4-35.0) 06/23/23 11:49
Vital Signs
Vital Signs
Temp Pulse Resp BP Pulse Ox
98.5 F 82 16 80/64 95
06/26/23 00:15 06/26/23 00:15 06/26/23 00:15 06/26/23 00:15 06/26/23 00:15
CT Intake/Output/Weight
06/25/23 06/25/23 06/26/23
06:59 18:59 06:59
Intake Total 90 / 465.4 180 / 230 50 / 230
Output Total 435 / 1685 575 / 775 200 / 775
Balance -345 / -1219.6 -395 / -545 -150 / -545
SaO2: 95
Physical Exam
-
General: Awake and AOx3
Cardiovascular: Regular rate & rhythm, No Murmurs and No Rub
Respiratory: Decreased Breath Sounds
Sternum: Stable
Incision: Clean, Dry and Dressing Intact
Abdomen: soft, nondistended, + bowel sounds
Extremities: No Edema (2+ DP b/l)
Neuro: A&Ox4, no gross focal deficits
Data Reviewed
-
Lab Results: Results Reviewed
Medications: Active Meds Reviewed
Chest X-Ray: Report Reviewed and Image Reviewed
ECG: Report Reviewed and Image Reviewed
[2023-06-26] MEDS: TYLENOL 1000 MG PO (06:36)
[2023-06-26] MEDS: TOPROL XL 50 MG PO (08:18)
[2023-06-26] MEDS: VITAMIN C 1000 MG PO (08:18)
[2023-06-26] MEDS: PROTONIX 40 MG PO (08:18)
[2023-06-26] MEDS: PLAVIX 75 MG PO (08:18)
[2023-06-26] MEDS: ENTRESTO 24 MG/26 MG 1 TAB PO (08:18)
[2023-06-26] MEDS: NEURONTIN 200 MG PO (08:18)
[2023-06-26] MEDS: SENOKOT-S 1 TABLET PO (08:18)
[2023-06-26] MEDS: ZYLOPRIM 300 MG PO (08:18)
[2023-06-26] MEDS: LOW STRENGTH ASPIRIN 81 MG PO (08:18)
[2023-06-26] MEDS: PACERONE 200 MG PO (08:18)
[2023-06-26] MEDS: LIDOCAINE 4% PATCH TOPICAL (08:19)
[2023-06-26] MEDS: BACTROBAN 2% OINTMENT 2 APPLIC NASAL (08:19)
--- NOTE | 2023-06-26 08:39 | PTCARENOTE ---
Received pt from hourly shift RN; pt AAOX3 and resting in chair; NSR on monitor and VSS: Epicardial wires insulated; RIJ Cordis and PIV x1 patent; lungs diminished and IS to 1000; positive bowel sounds; pt voiding yellow urine; pulses palpable
throughout; no edema noted; all surgical dressing C/D/I; see nursing documentation for further details.
[2023-06-26] MEDS: FERRLECIT 110 MG IV (08:54)
[2023-06-26] MEDS: MAGNESIUM OXIDE PO (08:55)
--- NOTE | 2023-06-26 09:15 | W.PN.CD ---
Today's Communication / Plan
-
Monitor BP
can hold Emtresto try and avoid hypotension
can use low dose Valsartan rather than Entresto to avoid lower BP and then as he recovers can get back to Entresto
Impression / Plan
-
Impression/Plan: 57M originally presented to [facility] with acute heart failure, found to have severe LV dysfunction (LVEF 25%) prompting cardiac catheterization which showed left main disease along with valve insufficiency. He was started on GDMT and
diuresis then discharged. Follow up echo shows that valve disease has improved with improvement in filling pressures but his global systolic function remains severely depressed. He presents for elective CABG.
#CAD
-S/P CABG (In situ GIL to LAD, Sequential SVG to OM1 to OM 2) by Dr. Dooley on 06/23/23.
-Pre EF 30% with global hypokinesis, post 40-45% without new RWMA.
-
#ICM
- -Resume GDMT as hemodynamics will tolerate. BP running low would hold Entresto and reassess
#HLD
- atorvastatin 40 mg daily.
#Gout
#Prior ETOH misuse, reports sobriety pre-operatively
Congressional Representative: Dr. Nuñez
Subjective/Interval History:
CI 2.91 prompting discontinuation of norepinephrine and dobutamine.
Weight is up 0.5 kg from admission (70.7 <-- 70.2).
Hbg 10.7 <-- 11.3 <-- 12.2
DATA:
Intraoperative ARACELY, 06/23/2023:
CONCLUSIONS
Normal left ventricular size and wall thickening with mild to moderate global
hypokinesis that gradually improved in the preoperative period under general
anesthesia. Ejection fraction 30-40% by visual inspection. Normal right
ventricular function. Trace to mild mitral and aortic regurgitation. Mild
tricuspid regurgitation.
Significant improvement in left ventricular function on 3 mcg/kg/min of
dobutamine. Ejection fraction now in the normal range of 50-55%. Otherwise
unchanged.
Physical Exam
Vital Signs/Labs
Vital Signs
Temp Pulse Resp BP Pulse Ox
98.5 F 90 20 81/61 95
06/26/23 07:44 06/26/23 06:34 06/26/23 07:44 06/26/23 06:34 06/26/23 07:44
06/25/23 06/26/23 06/27/23
06:59 06:59 06:59
Actual Weight 71.5 kg 71.7 kg
06/26/23 03:46
06/26/23 03:46
PT 16.2 Sec (11.4-14.6) H 06/23/23 11:49
INR 1.32 06/23/23 11:49
APTT 33.6 Sec (23.4-35.0) 06/23/23 11:49
Magnesium 2.5 mg/dl (1.6-2.3) H 06/26/23 03:46
Physical Exam
Constitutional: No acute distress
Cardiovascular: Rhythm & rate is regular
Respiratory: Respiratory effort normal
GI: Soft
Neuro/Psych: Alert
Data Reviewed
-
Date of Service: June 26, 2023
Medical Tests (PFT, Pathology etc): Report Reviewed by me
Labs: Labs Reviewed by me
--- NOTE | 2023-06-26 12:19 | PTCARENOTE ---
NSR on monitor and VSS; PT/OT in with pt; assessment unchanged.
--- NOTE | 2023-06-26 12:30 | W.DCSUMMARY ---
Discharge Summary
Discharge Data
Date of Admission: 06/23/23
Date of Discharge: 06/26/23
Total time spent discharging patient (in min): 35
-
Pending Results: No
Hospital Course
Primary care physician:
Dr Damion Cabrales
Outpatient hotel dining room cashier:
Dr Umair Nuñez
Inpatient consultants:
CBC, transplant immunologist, PT/OT
Procedures:
1. Pump assisted, beating heart, coronary artery bypass grafting x 3 (In situ GIL to LAD, Ao to RSVG to OM1 sequential to OM 2)
Primary Diagnosis:
1. Multivessel coronary artery disease with involvement of the left main and ischemic cardiomyopathy
Secondary Diagnoses:
1. Depressed left ventricular ejection fraction of 30%
2. Ischemic cardiomyopathy with acute on chronic congestive heart failure requiring admission to hospital for diuresis and inotropic support
3. History of alcohol abuse, possible alcohol induced cardiomyopathy
4. Mitral and tricuspid valve regurgitation
5. Hyperlipidemia
6. Gout
HPI: 57-year-old male who initially presented to the hospital with shortness of breath and respiratory failure secondary to volume overload. At that time he was found to have an EF of approximately 25% with severe mitral and tricuspid valve
insufficiency. He required aggressive diuresis and inotropic support. He was found to have an index of 1.6-1.7 at that time. He did recover after volume offloading and was ultimately discharged and was seen in the office with Dr. Dooley.
Ultimately, he presented to on 06/22 for surgery.
Hospital course:
Patient was electively admitted for a CABG on 06/[address] Dooley. He had an improved EF IntraOp and returned to the CVICU on Levophed, dobutamine, Precedex, and insulin infusions. Patient was weaned off his Precedex infusion and extubated by 1500.
Dobutamine and Levophed was also weaned off. Cardiac index is remained stable and Partlow-Josy catheter was removed. On 06/23 postoperative day #1, patient was started on beta-blockers, aspirin, and Plavix. Along with his home dose of Entresto.
Metoprolol tartrate was switched to metoprolol succinate. He was diuresed with 20 mg of p.o. Lasix. On 06/24 postop day #2, patient was started on Farxiga and due to tachycardia patient's beta-julio dose was increased to his home dose. On 06/25
postoperative day #3 patient Farxiga was discontinued due to dizziness and hypotension overnight. Metoprolol and Entresto were continued and patient tolerated that drug combination, blood pressures improved and overall dizziness subsided. Repeat
echocardiogram reviewed with Dr. Dooley was stable. Physical therapy and Occupational Therapy evaluated the patient and they deemed that it was safe for him to go home with a walker and commode. Sternal precautions were emphasized with the patient.
Patient was deemed stable for discharge.
Home medication changes:
see below
Discharge Plan
-
Patient Disposition: Home (Routine Discharge)
Discharge Diagnosis/Procedures: CABG/CAD/CHF
Condition: Fair
Diet: 2 Gram Sodium and Restrict fluids to 48 oz
Activity: No strenuous activity
Driving Restrictions: Not until seen by your Dr
Bathing Restrictions: OK to Shower
Other Services: Cardiac Rehab
Activity Restrictions/Additional Instructions:
Please call to make appointments for phase II Cardiac Rehab:
Ramin Hernandez
[address] [place] [address]
[phone]
ACTIVITY:
-No strenuous activity: no heavy lifting, pushing, pulling anything over 15 pounds for one month
-continue to use stairs as tolerated
DRIVING RESTRICTIONS:
-No driving for one month or until approved by your surgeon
WOUND CARE:
-Shower daily. Use soap & water.
-No lotions, creams or powders on incision area.
DIET:
-continue a low fat/low cholesterol diet.
-IF you are diabetic, continue carb controlled diet.
CARDIAC REHAB:
-Please make appointment to start in 5-6 weeks with your local hospital program. (See Cardiac Rehabilitation Discharge Booklet).
SPECIALTY INSTRUCTIONS:
-Weigh yourself daily. Call your physician for any weight gain/loss of 3 lbs overnight or 5 lbs in one week.
-REPORT any clicking noise or uneven appearance of your sternum to your surgeon immediately.
-If you smoke, you are instructed to quit. The [place] smoking hotline phone number is [phone]
Referrals:
CT Transitional Care Nurse [Outside] - in one to two days
(
The Cardiothoracic Transitional Care Nurse will call you to set up a visit in 1-2 days.)
Umair Nuñez DO [Active] - 08/04/23 11:00 am (Appointment on July 20, 2023 has be cancelled. )
Damion Cabrales MD [Family Provider] - in four to six weeks (Please make an appointment in four to six weeks. )
Ted Dooley MD [Active] - 07/30/23 1:45 pm
Prescriptions:
No Action
allopurinol 300 mg Tablet
300 mg PO DAILY
acetaminophen [Tylenol] 325 mg Capsule
650 mg PO HS
spironolactone 25 mg Tablet
12.5 mg PO DAILY Qty: 30 0RF
Entresto 24-26 mg Tablet
1 tab PO BID Qty: 60 0RF
dapagliflozin propanediol [Farxiga] 10 mg Tablet
10 mg PO DAILY Qty: 30 0RF
atorvastatin 40 mg Tablet
40 mg PO QPM Qty: 30 0RF
metoprolol succinate 50 mg Tablet Extended Release 24 Hr
50 mg PO BID Qty: 30 0RF
aspirin [Children's Aspirin] 81 mg Tablet,Chewable
81 mg PO DAILY Qty: 30 0RF
furosemide 20 mg tablet
20 mg PO DAILY Qty: 30 0RF
Rx Instructions:
Take only if weight gain of 3 pounds in 1 day or 5 pounds in 5 days
Care Plan Goals
Care Plan Goals:
Problem: Readiness for enhanced knowledge related to diagnosis and treatment plan
Goal: Understand your diagnosis and treatment plan needs, including medications if applicable.
Instructions: Know your diagnosis, underlying causes and treatment plan options, including medications if applicable. Consult with your health care team to learn about your diagnosis and treatment plan, including medications if applicable.
Discharge Date and Time
Print Language: UPPER SORBIAN
--- NOTE | 2023-06-26 12:45 | PTCARENOTE ---
Epicardial AV wires cut with 2 RNs. Right IJ cordis d/c for discharge. Pt showered and tolerated. Assisted into his clothes. Awaiting discharge order.
[2023-06-26] MEDS: NSS IV (13:11)
--- NOTE | 2023-06-26 14:05 | CM ---
Addendum entered by Magui Staples 06/26/23 14:46:
Telephone call to his insurance to check on co-pay for Farxiga 10 mg po daily. His co-pay would be $173.00 a month until he met his deductible. Once he mets his deductible his co-pay would be zero.
Original Note:
Reviewed chart. Met with Mr. Davalos to review discharge plans. He states he is feeling well and maybe able to go home soon. We reviewed a home visit by the Cardiothoracic Transitional Care Nurse. He is agreeable to a home visit. He ambulated 10
feet x 2 with rolling walker and supervision. Prior to admission he resides with his two sisters in a two story home with two steps to enter. He has to go up a full flight of steps to get to bedroom/full bathroom. He has a powder room on the
first floor. He was given a rolling walker and bedside commode to go home. He states his sister will provide transportation home. Medical work-up in progress. The discharge plan is to return home with his sisters and a home visit by the
Cardiothoracic Transitional Care Nurse when medically stable.
--- NOTE | 2023-06-26 14:31 | PTCARENOTE ---
Discharge order written. Instructions reviewed and patient in agreement, all questions answered. Walker and commode and all pt belongings sent home with patient. Pt stable.
== END 2023-06-26 14:47 | disposition home or self-care (01) | DRG 236 ==
LOC: CVICU 05:19
PROVIDERS: Physician Assistant Medical; Physician Assistant Surgical; ADMITTING PHYSICIAN Thoracic Surgery (Cardiothoracic Vascular Surgery); CONSULT PHYSICIAN Internal Medicine Critical Care Medicine; FAMILY PHYSICIAN Hospitalist
PROC: 021109W Bypass Coronary Artery, Two Arteries from Aorta with Autologous Venous Tissue, Open Approach (ICD-10-PCS; 2023-06-23)
PROC: 5A1221Z Performance of Cardiac Output, Continuous (ICD-10-PCS; 2023-06-23)
PROC: 02100Z9 Bypass Coronary Artery, One Artery from Left Internal Mammary, Open Approach (ICD-10-PCS; 2023-06-23)
PROC: 06BQ0ZZ Excision of Left Saphenous Vein, Open Approach (ICD-10-PCS; 2023-06-23)
PROC: B24BZZ4 Ultrasonography of Heart with Aorta, Transesophageal (ICD-10-PCS; 2023-06-23)
DX: I25.10 Atherosclerotic heart disease of native coronary artery without angina pectoris (principal); D62 Acute posthemorrhagic anemia; J98.11 Atelectasis; I50.22 Chronic systolic (congestive) heart failure; E78.00 Pure hypercholesterolemia, unspecified; I25.5 Ischemic cardiomyopathy; E86.1 Hypovolemia
CPT/HCPCS: 93308; 36415; 71045; 80048; 80053; 81003; 82248; 82330; 82565; 82805; 82947; 82962; 83036; 83735; 84132; 84302; 84520; 85014; 85018; 85025; 85027; 85049; 85610; 85730; 86850; 86900; 86901; 86920; 87070; 93005; 93312; 93320; 93325; 93970; 94002; 97163; 97167; 97530; 97535; J2916; P9045; P9047